=== PATIENT | female | born 1980 | race Caucasian/White ===

== ENCOUNTER 2017-08-04 18:49 | Emergency (ER) | payer OTHER ==
[~2017-08-04] VITALS: Ht 162.6 cm; Wt 100.0 kg
[2017-08-04] MEDS ORDERED: PERCOCET 5/31 TABLET PO (21:28)
[2017-08-04 22:27] VITALS: BP 145/108
== END 2017-08-04 22:35 | disposition home or self-care (01) ==
LOC: EME 18:49
PROC: 2W3RX1Z Immobilization of Left Lower Leg using Splint (ICD-10-PCS; principal; 2017-08-04)
DX: S82.832A Other fracture of upper and lower end of left fibula, initial encounter for closed fracture (principal); W01.0XXA Fall on same level from slipping, tripping and stumbling without subsequent striking against object, initial encounter; Y92.828 Other wilderness area as the place of occurrence of the external cause
CPT/HCPCS: 73590; 73610; 73630; 99281; 99284; J3010